=== PATIENT | female | born 1960 | race Caucasian/White ===

== ENCOUNTER 2023-09-02 15:03 | Emergency (ER) | payer MEDICARE, MEDICAID ==
[~2023-09-02] VITALS: Ht 180.3 cm; Wt 50.9 kg
[~2023-09-02 15:03] MED LIST: CLOZ25TA52 PO; DULO-113 PO; LEVO25TA9 PO; LITH300C3 PO; PANT-31 PO; SIMV-259 PO
[2023-09-02 15:25] VITALS: TEMP 98.5
[2023-09-02] MEDS ORDERED: ACETAMINOPHEN 325 MG TABLET PO ONE (15:45)
[2023-09-02] MEDS ORDERED: LAMO-24 PO (17:22)
[2023-09-02] MEDS ORDERED: OLAN2.5T29 PO (17:22)
[2023-09-02] MEDS ORDERED: PANT-31 PO (17:22)
[2023-09-02] MEDS ORDERED: OLAN10TA74 PO (17:22)
[2023-09-02 18:45] VITALS: BP 110/75; PULSE 90; RESP 12
== END 2023-09-02 19:12 | disposition home or self-care (01) ==
LOC: EMS 15:10
DX: S09.90XA Unspecified injury of head, initial encounter (principal); E03.9 Hypothyroidism, unspecified; F20.9 Schizophrenia, unspecified; M25.512 Pain in left shoulder; X58.XXXA Exposure to other specified factors, initial encounter; Y93.89 Activity, other specified; Y92.89 Other specified places as the place of occurrence of the external cause; Y99.8 Other external cause status
CPT/HCPCS: 70450; 72125; 99284

== ENCOUNTER 2024-01-15 16:40 | Inpatient (IN) | payer MEDICARE, MEDICAID ==
[~2024-01-15] VITALS: Ht 149.9 cm; Wt 43.5 kg
[~2024-01-15 16:40] MED LIST changes: +LAMO-24 PO; +OLAN10TA74 PO; +OLAN2.5T29 PO
[2024-01-15 18:48] LABS: COVID AG,FIA SOURCE NASAL SWAB
[2024-01-15 19:04] LABS: BASOPHILS % (AUTO) 0.5 % (0.0-2.0); EOSINOPHILS % (AUTO) 0.9 % (1.0-6.0); HEMATOCRIT 36.3 % (36-46); HEMOGLOBIN 12.2 g/dL (12.0-16.0); LYMPHOCYTES # (AUTO) 0.9 K/uL (1.0-4.8); LYMPHOCYTES % (AUTO) 11.7 % (22.0-44.0); MEAN CORPUSCULAR HEMOGLOBIN 31.1 pg (26.0-34.0); MEAN CORPUSCULAR HGB CONC 33.5 G/dL (31.0-37.0); MEAN CORPUSCULAR VOLUME 93 fL (80-100); MONOCYTES # (AUTO) 0.5 K/uL (0.1-1.0); MONOCYTES % (AUTO) 6.4 % (2.0-9.0); NEUTROPHILS # (AUTO) 6.4 K/uL (1.8-7.7); NEUTROPHILS % (AUTO) 80.5 % (40.0-70.0); PLATELET COUNT (AUTO) 286 K/uL (150-450); RED BLOOD CELL COUNT(AUTO) 3.91 MIL/uL (4.00-5.20); RED CELL DISTRIBUTION WIDTH 14.1 % (11.5-14.5)
[2024-01-15 19:08] LABS: SARS-COV2 (COVID) ANTIGEN,FIA Negative (Negative)
[2024-01-15 19:10] LABS: ANION GAP 8 mmol/L (8-16); CALCIUM, TOTAL 8.6 mg/dL (8.8-10.5); CARBON DIOXIDE 30 mmol/L (22-29); CHLORIDE 105 mmol/L (98-107); GLOMERULAR FILTR. RATE CALC 56 mL/min (>60); GLUCOSE,RANDOM 89 mg/dL (70-110); POTASSIUM 3.9 mmol/L (3.5-5.1); SODIUM SERUM 143 mmol/L (136-145); UREA NITROGEN, BLOOD 17 mg/dL (7-18)
[2024-01-15 19:16] LABS: ALANINE AMINOTRANSFERASE 34 U/L (12-78); ALBUMIN 3.2 g/dL (3.4-5.0); ALKALINE PHOSPHATASE 67 U/L (46-116); ASPARTATE AMINOTRANSFERASE 11 U/L (15-37); BILIRUBIN,TOTAL 0.4 mg/dL (0.1-1.0); TOTAL PROTEIN, SERUM 5.8 g/dL (6.4-8.2)
[2024-01-15 19:18] LABS: ALCOHOL, BLOOD (SERUM) < 3 mg/dL (0-10)
[2024-01-16 11:29] VITALS: BP 149/99; PULSE 90; RESP 18; TEMP 97.6; O2SAT 97
[2024-01-16] MEDS ORDERED: PNEUMOCOCCAL VACCINE POLYVALENT 0.5 ML SYRINGE [PPSV23] IM. ONE (12:00)
[2024-01-16] MEDS ORDERED: ACETAMINOPHEN 325 MG TABLET PO PRN (12:30)
[2024-01-16] MEDS ORDERED: ALBUTEROL SULFATE HFA 90 MCG/PUFF 8 GM INHALER IH PRN (12:30)
[2024-01-16] MEDS: LEVOTHYROXINE SODIUM 50 MCG TABLET PO SCH (12:30)
[2024-01-16] MEDS ORDERED: PETROLATUM,WHITE 28 GM JELLY TP PRN (12:30)
[2024-01-16] MEDS ORDERED: ONDANSETRON HCL 4 MG TABLET PO PRN (12:30)
[2024-01-16] MEDS ORDERED: DOCUSATE SODIUM 100 MG CAPSULE PO PRN (12:30)
[2024-01-16] MEDS ORDERED: CloNIDine HCL 0.1 MG TABLET PO PRN (12:30)
[2024-01-16] MEDS ORDERED: GuaiFENesin/D-METHORPHAN [SUGAR-FREE] 200-20MG/10 ML SYRUP UDCUP PO PRN (12:30)
[2024-01-16] MEDS ORDERED: LOPERAMIDE HCL 2 MG CAPSULE PO PRN (12:30)
[2024-01-16] MEDS ORDERED: IBUPROFEN 400 MG TABLET PO PRN (12:30)
[2024-01-16] MEDS: FOLIC ACID 1 MG TABLET PO SCH (12:59)
[2024-01-16] MEDS: CHOLECALCIFEROL (VIT D3) 1,000 UNITS [25 MCG] TABLET PO SCH (12:59)
[2024-01-16] MEDS: HALOPERIDOL 5 MG TABLET PO PRN (12:59)
[2024-01-16] MEDS: MULTIVITAMINS WITH MINERALS, THERAPEUTIC TABLET PO SCH (12:59)
[2024-01-16] MEDS: THIAMINE 100 MG TABLET PO SCH (12:59)
[2024-01-16] MEDS: MAGNESIUM OXIDE 400 MG TABLET PO SCH (12:59)
[2024-01-16] MEDS: MIDODRINE HCL 5 MG TABLET PO SCH (13:00)
[2024-01-16] MEDS: LORazepam 2 MG TABLET PO PRN (20:15)
[2024-01-16 21:05] VITALS: BP 101/68; PULSE 102; RESP 18; TEMP 97.3; O2SAT 96
[2024-01-16] MEDS: ZOLPIDEM TARTRATE 10 MG TABLET PO PRN (21:19)
[2024-01-17 08:05] VITALS: BP 128/74; PULSE 90; RESP 18; TEMP 97.6; O2SAT 95
[2024-01-17 08:56] LABS: HEMOGLOBIN A1C 5.7 % (3.8-5.6)
[2024-01-17 09:11] LABS: CHOL/HDL RATIO 3.5 (3.9-5.7); THYROID STIMULATING HORMONE 4.31 uIU/mL (0.36-3.74)
[2024-01-17] MEDS: LamoTRIgine 100 MG TABLET PO SCH (12:14)
[2024-01-17] MEDS: LITHIUM CARBONATE 300 MG CAPSULE PO SCH (16:43)
[2024-01-17] MEDS: OLANZapine 2.5 MG TABLET PO SCH (16:44)
[2024-01-17] MEDS: DULoxetine HCL 60 MG CAPSULE PO SCH (16:44)
[2024-01-17 20:05] VITALS: BP 105/66; PULSE 71; RESP 18; TEMP 97.1; O2SAT 96
[2024-01-17] MEDS: CloZAPine 100 MG TABLET PO SCH (20:59)
[2024-01-17] MEDS: OLANZapine 10 MG TABLET PO SCH (20:59)
[2024-01-18 09:22] VITALS: BP 136/74; PULSE 92; RESP 18; TEMP 97.8; O2SAT 97
[2024-01-18 21:30] VITALS: BP 131/75; PULSE 79; RESP 18; TEMP 97.5
[2024-01-19 10:03] VITALS: BP 94/61; PULSE 88; RESP 18; TEMP 97.5; O2SAT 96
[2024-01-19 16:30] VITALS: BP 112/79; PULSE 90; RESP 18
[2024-01-19 22:29] VITALS: BP 120/80; PULSE 82; RESP 19; TEMP 98; O2SAT 98
[2024-01-20 08:45] VITALS: BP 105/69; PULSE 81; RESP 16; TEMP 97.4; O2SAT 97
[2024-01-20 12:15] VITALS: BP 116/72; PULSE 78; RESP 18
[2024-01-20 17:15] VITALS: BP 118/74; PULSE 76; RESP 18
[2024-01-20 21:10] VITALS: BP 91/63; PULSE 77; RESP 18; TEMP 97; O2SAT 95
[2024-01-21 07:30] LABS: BASOPHILS % (AUTO) 0.2 % (0.0-2.0); EOSINOPHILS % (AUTO) 2.9 % (1.0-6.0); HEMATOCRIT 39.1 % (36-46); HEMOGLOBIN 13.4 g/dL (12.0-16.0); LYMPHOCYTES # (AUTO) 0.9 K/uL (1.0-4.8); LYMPHOCYTES % (AUTO) 9.4 % (22.0-44.0); MEAN CORPUSCULAR HEMOGLOBIN 31.8 pg (26.0-34.0); MEAN CORPUSCULAR HGB CONC 34.3 G/dL (31.0-37.0); MEAN CORPUSCULAR VOLUME 93 fL (80-100); MONOCYTES # (AUTO) 0.6 K/uL (0.1-1.0); MONOCYTES % (AUTO) 6.1 % (2.0-9.0); NEUTROPHILS # (AUTO) 7.9 K/uL (1.8-7.7); NEUTROPHILS % (AUTO) 81.4 % (40.0-70.0); PLATELET COUNT (AUTO) 251 K/uL (150-450); RED BLOOD CELL COUNT(AUTO) 4.21 MIL/uL (4.00-5.20); RED CELL DISTRIBUTION WIDTH 14.2 % (11.5-14.5); WHITE BLOOD COUNT (AUTO) 9.7 K/uL (4.5-11.0)
[2024-01-21 08:15] VITALS: BP 116/80; PULSE 81; RESP 18; TEMP 97.5; O2SAT 96
[2024-01-21 20:29] VITALS: BP 112/71; PULSE 80; RESP 18; TEMP 97.5
[2024-01-22 07:14] LABS: BASOPHILS % (AUTO) 0.2 % (0.0-2.0); EOSINOPHILS % (AUTO) 1.5 % (1.0-6.0); HEMATOCRIT 39.1 % (36-46); HEMOGLOBIN 13.1 g/dL (12.0-16.0); LYMPHOCYTES # (AUTO) 0.8 K/uL (1.0-4.8); LYMPHOCYTES % (AUTO) 6.1 % (22.0-44.0); MEAN CORPUSCULAR HEMOGLOBIN 31.1 pg (26.0-34.0); MEAN CORPUSCULAR HGB CONC 33.4 G/dL (31.0-37.0); MEAN CORPUSCULAR VOLUME 93 fL (80-100); MONOCYTES # (AUTO) 0.8 K/uL (0.1-1.0); NEUTROPHILS # (AUTO) 11.2 K/uL (1.8-7.7); PLATELET COUNT (AUTO) 290 K/uL (150-450); RED CELL DISTRIBUTION WIDTH 13.7 % (11.5-14.5)
[2024-01-22 07:25] LABS: NEUTROPHILS % (AUTO) 86.2 % (40.0-70.0)
[2024-01-22 08:41] VITALS: BP 102/67; PULSE 90; RESP 17; TEMP 98.3; O2SAT 95
[2024-01-22 21:36] VITALS: BP 90/60; PULSE 80; RESP 18; TEMP 98.3; O2SAT 95
[2024-01-23 08:40] VITALS: BP 98/61; PULSE 85; RESP 16; TEMP 97.6; O2SAT 95
[2024-01-23 21:40] VITALS: BP 127/80; PULSE 79; RESP 18; TEMP 97.3; O2SAT 96
[2024-01-24 08:45] VITALS: BP 120/80; PULSE 75; RESP 17; TEMP 97.4; O2SAT 95
[2024-01-24] MEDS: BENZTROPINE MESYLATE 1 MG TABLET PO SCH (16:30)
[2024-01-24 20:00] VITALS: BP 105/70; PULSE 70; RESP 18; TEMP 97.2; O2SAT 96
[2024-01-25 08:45] LABS: BASOPHILS % (AUTO) 0.2 % (0.0-2.0); EOSINOPHILS % (AUTO) 2.5 % (1.0-6.0); HEMATOCRIT 36.7 % (36-46); HEMOGLOBIN 12.1 g/dL (12.0-16.0); LYMPHOCYTES # (AUTO) 1.1 K/uL (1.0-4.8); LYMPHOCYTES % (AUTO) 9.7 % (22.0-44.0); MEAN CORPUSCULAR HEMOGLOBIN 31.3 pg (26.0-34.0); MEAN CORPUSCULAR VOLUME 95 fL (80-100); MONOCYTES # (AUTO) 0.9 K/uL (0.1-1.0); MONOCYTES % (AUTO) 7.4 % (2.0-9.0); NEUTROPHILS # (AUTO) 9.4 K/uL (1.8-7.7); NEUTROPHILS % (AUTO) 80.2 % (40.0-70.0); PLATELET COUNT (AUTO) 254 K/uL (150-450); RED BLOOD CELL COUNT(AUTO) 3.87 MIL/uL (4.00-5.20); RED CELL DISTRIBUTION WIDTH 14.1 % (11.5-14.5); WHITE BLOOD COUNT (AUTO) 11.7 K/uL (4.5-11.0)
[2024-01-25 09:01] VITALS: BP 123/81; PULSE 85; RESP 16; TEMP 97.1; O2SAT 96
[2024-01-25 21:18] VITALS: RESP 18
[2024-01-26 08:17] VITALS: BP 110/76; PULSE 88; RESP 18; TEMP 97.7; O2SAT 96
[2024-01-26 20:03] VITALS: BP 112/78; PULSE 86; RESP 18; TEMP 97.4
[2024-01-27 08:00] VITALS: BP 88/59; PULSE 96; RESP 18; TEMP 98.4; O2SAT 95
[2024-01-27 11:30] VITALS: BP 118/72; PULSE 99; RESP 18; TEMP 97.9; O2SAT 96
[2024-01-27] MEDS: MAGNESIUM HYDROXIDE SUSPENSION 30 ML UDCUP PO PRN (17:58)
[2024-01-28] MEDS: DOCUSATE SODIUM 100 MG CAPSULE PO SCH (10:05)
[2024-01-28 10:44] LABS: BASOPHILS % (AUTO) 0.5 % (0.0-2.0); EOSINOPHILS % (AUTO) 4.2 % (1.0-6.0); HEMATOCRIT 36.1 % (36-46); HEMOGLOBIN 12.2 g/dL (12.0-16.0); LYMPHOCYTES # (AUTO) 0.9 K/uL (1.0-4.8); LYMPHOCYTES % (AUTO) 9.8 % (22.0-44.0); MEAN CORPUSCULAR HEMOGLOBIN 31.4 pg (26.0-34.0); MEAN CORPUSCULAR HGB CONC 33.7 G/dL (31.0-37.0); MEAN CORPUSCULAR VOLUME 93 fL (80-100); MONOCYTES # (AUTO) 0.5 K/uL (0.1-1.0); MONOCYTES % (AUTO) 5.8 % (2.0-9.0); NEUTROPHILS # (AUTO) 7.1 K/uL (1.8-7.7); NEUTROPHILS % (AUTO) 79.7 % (40.0-70.0); PLATELET COUNT (AUTO) 271 K/uL (150-450); RED BLOOD CELL COUNT(AUTO) 3.87 MIL/uL (4.00-5.20); RED CELL DISTRIBUTION WIDTH 13.8 % (11.5-14.5); WHITE BLOOD COUNT (AUTO) 8.9 K/uL (4.5-11.0)
[2024-01-28 21:33] VITALS: BP 100/64; PULSE 83; RESP 18; TEMP 98.1; O2SAT 96
[2024-01-28] MEDS: MAG HYDROX/ALUMINUM HYD/SIMETH ES 30 ML SUSPENSION UDCUP PO PRN (21:39)
[2024-01-29 10:47] VITALS: BP 116/72; PULSE 81; RESP 18; TEMP 97.1; O2SAT 97
[2024-01-29 20:21] VITALS: BP 102/67; PULSE 68; RESP 18; TEMP 97.8; O2SAT 96
[2024-01-30 08:32] VITALS: BP 120/74; PULSE 96; RESP 16; TEMP 97.7; O2SAT 95
== END 2024-01-30 16:15 | DRG 885 ==
LOC: EMS 16:41 → 3EC 01-16 08:42
PROVIDERS: ADMIT Psychiatry & Neurology Child & Adolescent Psychiatry; ATTEND Psychiatry & Neurology Child & Adolescent Psychiatry
PROC: GZHZZZZ Group Psychotherapy (ICD-10-PCS; principal; 2024-01-19)
PROC: GZ52ZZZ Individual Psychotherapy, Cognitive (ICD-10-PCS; 2024-01-19)
DX: F20.0 Paranoid schizophrenia (principal); E43 Unspecified severe protein-calorie malnutrition; R45.851 Suicidal ideations; Z68.1 Body mass index [BMI] 19.9 or less, adult; Z59.00 Homelessness unspecified; E03.9 Hypothyroidism, unspecified; K21.9 Gastro-esophageal reflux disease without esophagitis; E78.5 Hyperlipidemia, unspecified; D72.829 Elevated white blood cell count, unspecified; Z20.822 Contact with and (suspected) exposure to COVID-19; Z79.899 Other long term (current) drug therapy; Z91.81 History of falling
CPT/HCPCS: 80053; 80061; 80178; 83036; 84443; 85025; 87081; 99285; G0480

== ENCOUNTER 2024-08-04 20:47 | Emergency (ER) | payer MEDICARE, OTHER ==
[~2024-08-04] VITALS: Ht 160 cm; Wt 54.5 kg
[~2024-08-04 20:47] MED LIST changes: -OLAN2.5T29 PO; +OLAN2.5T78 PO; -PANT-31 PO; -SIMV-259 PO
[2024-08-04 23:20] VITALS: TEMP 97.8
[2024-08-04 23:41] LABS: BASOPHILS % (AUTO) 0.5 % (0.0-2.0); EOSINOPHILS % (AUTO) 3.5 % (1.0-6.0); HEMATOCRIT 38.9 % (36-46); HEMOGLOBIN 12.6 g/dL (12.0-16.0); LYMPHOCYTES # (AUTO) 1.3 K/uL (1.0-4.8); MEAN CORPUSCULAR HEMOGLOBIN 30.9 pg (26.0-34.0); MEAN CORPUSCULAR HGB CONC 32.3 G/dL (31.0-37.0); MEAN CORPUSCULAR VOLUME 96 fL (80-100); MONOCYTES # (AUTO) 0.9 K/uL (0.1-1.0); MONOCYTES % (AUTO) 9.2 % (2.0-9.0); NEUTROPHILS # (AUTO) 6.8 K/uL (1.8-7.7); NEUTROPHILS % (AUTO) 72.8 % (40.0-70.0); PLATELET COUNT (AUTO) 318 K/uL (150-450); RED BLOOD CELL COUNT(AUTO) 4.07 MIL/uL (4.00-5.20); RED CELL DISTRIBUTION WIDTH 14.9 % (11.5-14.5); WHITE BLOOD COUNT (AUTO) 9.4 K/uL (4.5-11.0)
[2024-08-04 23:58] LABS: ANION GAP 8 mmol/L (8-16); CALCIUM, TOTAL 8.9 mg/dL (8.8-10.5); CARBON DIOXIDE 26 mmol/L (22-29); CHLORIDE 105 mmol/L (98-107); CREATININE 0.82 mg/dL (0.60-1.30); GLOMERULAR FILTR. RATE CALC > 60 mL/min (>60); GLUCOSE,RANDOM 97 mg/dL (70-110); POTASSIUM 4.3 mmol/L (3.5-5.1); SODIUM SERUM 139 mmol/L (136-145); UREA NITROGEN, BLOOD 18 mg/dL (7-18)
[2024-08-05 00:08] LABS: ALCOHOL, BLOOD (SERUM) < 3 mg/dL (0-10)
[2024-08-05 00:44] LABS: ALCOHOL, URINE DRUG SCREEN NEGATIVE (NEGATIVE); AMPHET/METH SCREEN,URINE NEGATIVE (NEGATIVE); BARBITURATE SCREEN, URINE NEGATIVE (NEGATIVE); BENZODIAZEPINES SCREEN,URINE NEGATIVE (NEGATIVE); CANNABINOID SCREEN,URINE NEGATIVE (NEGATIVE); COCAINE SCREEN,URINE NEGATIVE (NEGATIVE); METHADONE SCREEN, URINE NEGATIVE (NEGATIVE); OPIATE SCREEN,URINE NEGATIVE (NEGATIVE); PHENCYCLIDINE SCREEN,URINE NEGATIVE (NEGATIVE)
[2024-08-05 06:53] VITALS: BP 101/69; PULSE 58; RESP 16; O2SAT 99
== END 2024-08-05 07:05 | disposition home or self-care (01) ==
LOC: EMS 20:47
DX: F25.9 Schizoaffective disorder, unspecified (principal); R53.1 Weakness; F32.A Depression, unspecified; E78.5 Hyperlipidemia, unspecified; E03.9 Hypothyroidism, unspecified; K21.9 Gastro-esophageal reflux disease without esophagitis; Z79.899 Other long term (current) drug therapy
CPT/HCPCS: 99284; 80048; 85025; 36415; 80307; G0480

== ENCOUNTER 2024-08-16 23:58 | Emergency (ER) | payer MEDICARE, MEDICAID ==
[~2024-08-16] VITALS: Ht 157.5 cm; Wt 59.1 kg
[~2024-08-16 23:58] MED LIST changes: +CHOL25TA4 PO; +HYDR-4808 PO; +VORT5TAB PO
[2024-08-17 00:16] VITALS: TEMP 97.6
[2024-08-17 04:07] LABS: BASOPHILS % (AUTO) 0.6 % (0.0-2.0); HEMOGLOBIN 11.2 g/dL (12.0-16.0); LYMPHOCYTES # (AUTO) 1.1 K/uL (1.0-4.8); LYMPHOCYTES % (AUTO) 13.4 % (22.0-44.0); MEAN CORPUSCULAR HEMOGLOBIN 32.2 pg (26.0-34.0); MEAN CORPUSCULAR VOLUME 95 fL (80-100); MONOCYTES # (AUTO) 0.6 K/uL (0.1-1.0); MONOCYTES % (AUTO) 7.9 % (2.0-9.0); NEUTROPHILS % (AUTO) 75.1 % (40.0-70.0); PLATELET COUNT (AUTO) 304 K/uL (150-450); RED BLOOD CELL COUNT(AUTO) 3.48 MIL/uL (4.00-5.20); RED CELL DISTRIBUTION WIDTH 13.4 % (11.5-14.5)
[2024-08-17 04:17] LABS: CREATININE 1.03 mg/dL (0.60-1.30); POTASSIUM 3.9 mmol/L (3.5-5.1)
[2024-08-17 04:24] LABS: CALCIUM, TOTAL 8.3 mg/dL (8.8-10.5)
[2024-08-17 06:02] VITALS: BP 103/68; PULSE 66; RESP 14; O2SAT 97
== END 2024-08-17 06:30 ==
LOC: EMS 23:59
DX: S09.90XA Unspecified injury of head, initial encounter (principal); R41.82 Altered mental status, unspecified; F20.0 Paranoid schizophrenia; E78.5 Hyperlipidemia, unspecified; K21.9 Gastro-esophageal reflux disease without esophagitis; E03.9 Hypothyroidism, unspecified; F32.A Depression, unspecified; Z88.6 Allergy status to analgesic agent; Z79.899 Other long term (current) drug therapy; X58.XXXA Exposure to other specified factors, initial encounter; Y93.89 Activity, other specified; Y92.89 Other specified places as the place of occurrence of the external cause; Y99.8 Other external cause status
CPT/HCPCS: 70450; 80048; 82962; 85025; 99284

== ENCOUNTER → 2024-09-01 | Emergency (ER) | payer MEDICARE, OTHER ==
[~2024-09-01] VITALS: Ht 151.8 cm; Wt 45.5 kg
[~2024-09-01] MED LIST changes: +BENZ-247 PO; +CLOZ100T61 PO; +FOLI-130 PO; +LEVO50 PO; +LEVO750T68 PO; +LEVOFLOXACIN 250 MG TABLET PO SCH; +MIDO5TAB5 PO; +OLAN20TA82 PO; +VORT20TA PO
[2024-09-01 17:47] VITALS: TEMP 98.4
[2024-09-01 18:06] LABS: BASOPHILS % (AUTO) 0.4 % (0.0-2.0); EOSINOPHILS % (AUTO) 0.8 % (1.0-6.0); HEMATOCRIT 36.1 % (36-46); HEMOGLOBIN 11.6 g/dL (12.0-16.0); LYMPHOCYTES # (AUTO) 0.9 K/uL (1.0-4.8); LYMPHOCYTES % (AUTO) 6.4 % (22.0-44.0); MEAN CORPUSCULAR HEMOGLOBIN 30.6 pg (26.0-34.0); MEAN CORPUSCULAR HGB CONC 32.2 G/dL (31.0-37.0); MEAN CORPUSCULAR VOLUME 95 fL (80-100); MONOCYTES # (AUTO) 0.7 K/uL (0.1-1.0); NEUTROPHILS # (AUTO) 12.7 K/uL (1.8-7.7); PLATELET COUNT (AUTO) 372 K/uL (150-450); RED CELL DISTRIBUTION WIDTH 13.1 % (11.5-14.5); WHITE BLOOD COUNT (AUTO) 14.5 K/uL (4.5-11.0)
[2024-09-01 18:09] LABS: NEUTROPHILS % (AUTO) 87.4 % (40.0-70.0)
[2024-09-01] MEDS: LORazepam 2 MG/ML VIAL IVP ONE (18:12)
[2024-09-01 18:17] LABS: CALCIUM, TOTAL 8.8 mg/dL (8.8-10.5); CREATININE 1.12 mg/dL (0.60-1.30); POTASSIUM 4.2 mmol/L (3.5-5.1)
[2024-09-01 18:23] LABS: ALBUMIN 3.3 g/dL (3.4-5.0); BILIRUBIN,TOTAL 0.2 mg/dL (0.1-1.0); TOTAL PROTEIN, SERUM 5.9 g/dL (6.4-8.2)
[2024-09-01 18:25] LABS: TROPONIN I-HIGH SENSITIVITY 4 ng/L (<51)
[2024-09-01 19:10] VITALS: BP 109/71; PULSE 84; RESP 18; O2SAT 95
[2024-09-01 21:59] LABS: APPEARANCE,URINE CLEAR (CLEAR); BILIRUBIN,URINE NEGATIVE (NEGATIVE); COLOR,URINE YELLOW (YELLOW); GLUCOSE, URINE (UA) NEGATIVE (NEGATIVE); KETONES,URINE NEGATIVE (NEGATIVE); LEUKOCYTE ESTERASE ,URINE TRACE (NEGATIVE); NITRATE,URINE NEGATIVE (NEGATIVE); OCCULT BLOOD,URINE NEGATIVE (NEGATIVE); PH,URINE 7.5 (5.0-8.0); PROTEIN,URINE TRACE mg/dL (NEGATIVE); SPECIFIC GRAVITIY, URINE 1.023 (1.003-1.030); UROBILINOGEN,URINE <=1.0 mg/dL (<=1.0)
[2024-09-01 22:48] LABS: BACTERIA,URINE Rare /HPF (None Seen); RBC,URINE None Seen /HPF (0-2); WBC,URINE 0-2 /HPF (0-5)
[2024-09-01 23:00] LABS: COVID AG,FIA SOURCE NASAL SWAB
[2024-09-01 23:29] LABS: SARS-COV2 (COVID) ANTIGEN,FIA Negative (Negative)
== END | disposition home or self-care (01) ==
LOC: EMS 16:30
DX: R07.89 Other chest pain (principal); K21.9 Gastro-esophageal reflux disease without esophagitis; E03.9 Hypothyroidism, unspecified; E78.5 Hyperlipidemia, unspecified; F20.9 Schizophrenia, unspecified; F31.9 Bipolar disorder, unspecified; F41.9 Anxiety disorder, unspecified; Z79.899 Other long term (current) drug therapy; Z20.822 Contact with and (suspected) exposure to COVID-19; W19.XXXA Unspecified fall, initial encounter; Y93.89 Activity, other specified; Y92.89 Other specified places as the place of occurrence of the external cause; Y99.8 Other external cause status
CPT/HCPCS: 99285; 96374; 71045; 87426; 80053; 81001; 83880; 84484; 85025; 36415; 93005; J2060

== ENCOUNTER 2024-12-01 11:41 | Inpatient (IN) | payer MEDICARE, MEDICAID ==
[~2024-12-01] VITALS: Ht 149.9 cm; Wt 45.8 kg
[~2024-12-01 11:41] MED LIST changes: +ACET-2247 PO; +AMOX-457 PO; -CLOZ25TA52 PO; +DOCU-385 PO; -FOLI-130 PO; -LEVO25TA9 PO; -LEVOFLOXACIN 250 MG TABLET PO SCH; +MAGN-169 PO; -MIDO5TAB5 PO; -OLAN20TA82 PO; -VORT20TA PO; -VORT5TAB PO
[2024-12-01 12:50] LABS: BASOPHILS % (AUTO) 0.7 % (0.0-2.0); EOSINOPHILS % (AUTO) 2.1 % (1.0-6.0); HEMATOCRIT 36.4 % (36-46); HEMOGLOBIN 11.9 g/dL (12.0-16.0); LYMPHOCYTES % (AUTO) 12.8 % (22.0-44.0); MEAN CORPUSCULAR HEMOGLOBIN 29.9 pg (26.0-34.0); MEAN CORPUSCULAR HGB CONC 32.7 G/dL (31.0-37.0); MEAN CORPUSCULAR VOLUME 91 fL (80-100); MONOCYTES # (AUTO) 0.5 K/uL (0.1-1.0); MONOCYTES % (AUTO) 6.8 % (2.0-9.0); NEUTROPHILS # (AUTO) 6.2 K/uL (1.8-7.7); NEUTROPHILS % (AUTO) 77.6 % (40.0-70.0); PLATELET COUNT (AUTO) 351 K/uL (150-450); RED BLOOD CELL COUNT(AUTO) 3.98 MIL/uL (4.00-5.20); RED CELL DISTRIBUTION WIDTH 15.8 % (11.5-14.5)
[2024-12-01 12:59] LABS: ANION GAP 9 mmol/L (8-16); CALCIUM, TOTAL 8.3 mg/dL (8.8-10.5); CARBON DIOXIDE 24 mmol/L (22-29); CHLORIDE 106 mmol/L (98-107); CREATININE 1.31 mg/dL (0.60-1.30); GLOMERULAR FILTR. RATE CALC 41 mL/min (>60); GLUCOSE,RANDOM 84 mg/dL (70-110); POTASSIUM 3.9 mmol/L (3.5-5.1); SODIUM SERUM 139 mmol/L (136-145); UREA NITROGEN, BLOOD 22 mg/dL (7-18)
[2024-12-01 13:14] LABS: COVID AG,FIA SOURCE NASAL SWAB
[2024-12-01 13:26] LABS: ALCOHOL, BLOOD (SERUM) < 3 mg/dL (0-10)
[2024-12-01 13:57] LABS: SARS-COV2 (COVID) ANTIGEN,FIA Negative (Negative)
[2024-12-01] MEDS: DiphenhydrAMINE HCL 25 MG CAPSULE PO ONE (17:50)
[2024-12-01] MEDS: HALOPERIDOL 5 MG TABLET PO ONE (17:50)
[2024-12-01] MEDS: LORazepam 2 MG TABLET PO ONE (17:51)
[2024-12-01 19:07] LABS: APPEARANCE,URINE CLEAR (CLEAR); BILIRUBIN,URINE NEGATIVE (NEGATIVE); COLOR,URINE YELLOW (YELLOW); GLUCOSE, URINE (UA) NEGATIVE (NEGATIVE); KETONES,URINE TRACE mg/dL (NEGATIVE); LEUKOCYTE ESTERASE ,URINE MODERATE (NEGATIVE); NITRATE,URINE NEGATIVE (NEGATIVE); OCCULT BLOOD,URINE NEGATIVE (NEGATIVE); PH,URINE 6.5 (5.0-8.0); PH,URINE DRUG SCREEN 6.5 (5.0-8.0); PROTEIN,URINE NEGATIVE (NEGATIVE); SPECIFIC GRAVITIY, URINE 1.026 (1.003-1.030); UROBILINOGEN,URINE <=1.0 mg/dL (<=1.0)
[2024-12-01 19:13] LABS: ALCOHOL, URINE DRUG SCREEN NEGATIVE (NEGATIVE); AMPHET/METH SCREEN,URINE NEGATIVE (NEGATIVE); BARBITURATE SCREEN, URINE NEGATIVE (NEGATIVE); BENZODIAZEPINES SCREEN,URINE NEGATIVE (NEGATIVE); CANNABINOID SCREEN,URINE NEGATIVE (NEGATIVE); COCAINE SCREEN,URINE NEGATIVE (NEGATIVE); METHADONE SCREEN, URINE NEGATIVE (NEGATIVE); OPIATE SCREEN,URINE NEGATIVE (NEGATIVE); PHENCYCLIDINE SCREEN,URINE NEGATIVE (NEGATIVE)
[2024-12-01 19:53] LABS: BACTERIA,URINE Few /HPF (None Seen); RBC,URINE 0-2 /HPF (0-2); SQUAMOUS EPITHELIAL CELL,UR Few /LPF (None Seen)
[2024-12-01] MEDS: CloZAPine 100 MG TABLET PO ONE (20:27)
[2024-12-02] MEDS ORDERED: ZOLPIDEM TARTRATE 10 MG TABLET PO PRN (12:30)
[2024-12-02 14:50] VITALS: BP 111/74; PULSE 77; RESP 17; TEMP 98; O2SAT 98
[2024-12-02] MEDS: HALOPERIDOL 5 MG TABLET PO PRN (17:34)
[2024-12-02] MEDS ORDERED: PETROLATUM,WHITE 28 GM JELLY TP PRN (18:45)
[2024-12-02] MEDS ORDERED: NICOTINE 14 MG/24 HOUR PATCH TD PRN (18:45)
[2024-12-02] MEDS ORDERED: MAGNESIUM HYDROXIDE SUSPENSION 30 ML UDCUP PO PRN (18:45)
[2024-12-02] MEDS ORDERED: ACETAMINOPHEN 325 MG TABLET PO PRN (18:45)
[2024-12-02] MEDS ORDERED: GuaiFENesin/D-METHORPHAN [SUGAR-FREE] 200-20MG/10 ML SYRUP UDCUP PO PRN (18:45)
[2024-12-02] MEDS ORDERED: IBUPROFEN 400 MG TABLET PO PRN (18:45)
[2024-12-02] MEDS ORDERED: MAG HYDROX/ALUMINUM HYD/SIMETH ES 30 ML SUSPENSION UDCUP PO PRN (18:45)
[2024-12-02] MEDS ORDERED: LOPERAMIDE HCL 2 MG CAPSULE PO PRN (18:45)
[2024-12-02] MEDS ORDERED: ALBUTEROL SULFATE HFA 90 MCG/PUFF 8 GM INHALER IH PRN (18:45)
[2024-12-02] MEDS ORDERED: ONDANSETRON 4 MG TABLET PO PRN (18:45)
[2024-12-02] MEDS ORDERED: CloNIDine HCL 0.1 MG TABLET PO PRN (18:45)
[2024-12-02] MEDS ORDERED: DOCUSATE SODIUM 100 MG CAPSULE PO PRN (18:45)
[2024-12-02 20:04] VITALS: BP 113/72; PULSE 72; RESP 18; TEMP 97; O2SAT 97
[2024-12-03 03:22] LABS: APPEARANCE,URINE CLEAR (CLEAR); BILIRUBIN,URINE NEGATIVE (NEGATIVE); COLOR,URINE LIGHT YELLOW (YELLOW); GLUCOSE, URINE (UA) NEGATIVE (NEGATIVE); KETONES,URINE NEGATIVE (NEGATIVE); LEUKOCYTE ESTERASE ,URINE MODERATE (NEGATIVE); NITRATE,URINE NEGATIVE (NEGATIVE); OCCULT BLOOD,URINE NEGATIVE (NEGATIVE); PH,URINE 6.5 (5.0-8.0); PH,URINE DRUG SCREEN 6.5 (5.0-8.0); PROTEIN,URINE NEGATIVE (NEGATIVE); UROBILINOGEN,URINE <=1.0 mg/dL (<=1.0)
[2024-12-03 03:31] LABS: ALCOHOL, URINE DRUG SCREEN NEGATIVE (NEGATIVE); AMPHET/METH SCREEN,URINE NEGATIVE (NEGATIVE); BARBITURATE SCREEN, URINE NEGATIVE (NEGATIVE); BENZODIAZEPINES SCREEN,URINE NEGATIVE (NEGATIVE); CANNABINOID SCREEN,URINE NEGATIVE (NEGATIVE); COCAINE SCREEN,URINE NEGATIVE (NEGATIVE); METHADONE SCREEN, URINE NEGATIVE (NEGATIVE); OPIATE SCREEN,URINE NEGATIVE (NEGATIVE); PHENCYCLIDINE SCREEN,URINE NEGATIVE (NEGATIVE)
[2024-12-03 03:43] LABS: RBC,URINE None Seen /HPF (0-2)
[2024-12-03 03:44] LABS: BACTERIA,URINE None Seen /HPF (None Seen); SQUAMOUS EPITHELIAL CELL,UR Few /LPF (None Seen)
[2024-12-03] MEDS: LEVOTHYROXINE SODIUM 50 MCG TABLET PO SCH (06:58)
[2024-12-03 08:13] LABS: HEMOGLOBIN A1C 5.2 % (3.8-5.6)
[2024-12-03 08:22] LABS: CHOL/HDL RATIO 3.9 (3.9-5.7); THYROID STIMULATING HORMONE 8.42 uIU/mL (0.36-3.74)
[2024-12-03 09:52] VITALS: BP 91/58; PULSE 72; RESP 18; TEMP 97.5; O2SAT 95
[2024-12-03] MEDS: LamoTRIgine 100 MG TABLET PO SCH (15:50)
[2024-12-03] MEDS: OLANZapine 2.5 MG TABLET PO SCH (15:51)
[2024-12-03] MEDS: BENZTROPINE MESYLATE 1 MG TABLET PO SCH (15:51)
[2024-12-03] MEDS: DULoxetine HCL 60 MG CAPSULE PO SCH (15:51)
[2024-12-03] MEDS: LITHIUM CARBONATE 300 MG CAPSULE PO SCH (15:52)
[2024-12-03] MEDS: LORazepam 2 MG TABLET PO PRN (17:55)
[2024-12-03] MEDS: OLANZapine 10 MG TABLET PO SCH (21:17)
[2024-12-03] MEDS: CloZAPine 100 MG TABLET PO SCH (21:17)
[2024-12-03 21:52] VITALS: RESP 18
[2024-12-04 10:21] VITALS: BP 130/60; PULSE 84; RESP 17; TEMP 98
[2024-12-04 21:09] VITALS: BP 96/55; PULSE 61; RESP 16; TEMP 97.5; O2SAT 95
[2024-12-05 12:18] VITALS: BP 102/62; PULSE 78; RESP 16; TEMP 97.6; O2SAT 96
[2024-12-05 20:48] VITALS: BP 124/63; PULSE 76; RESP 18; TEMP 97.1; O2SAT 96
[2024-12-06 10:31] VITALS: RESP 18
[2024-12-06 22:58] VITALS: BP 99/62; PULSE 63; RESP 18; TEMP 97.4; O2SAT 96
[2024-12-07 08:23] VITALS: BP 114/64; PULSE 70; RESP 16; TEMP 97.6; O2SAT 96
[2024-12-07 22:20] VITALS: BP 105/59; PULSE 65; RESP 18; TEMP 97.6; O2SAT 98
[2024-12-08 10:33] VITALS: BP 104/69; PULSE 78; RESP 18; O2SAT 98
[2024-12-08 22:49] VITALS: BP 101/70; PULSE 67; RESP 18; TEMP 97.9; O2SAT 98
[2024-12-09 09:01] VITALS: BP 114/73; PULSE 77; RESP 18; TEMP 97.2; O2SAT 99
[2024-12-09 09:02] LABS: BASOPHILS % (AUTO) 0.3 % (0.0-2.0); EOSINOPHILS % (AUTO) 3.2 % (1.0-6.0); HEMATOCRIT 42.5 % (36-46); HEMOGLOBIN 13.9 g/dL (12.0-16.0); LYMPHOCYTES # (AUTO) 0.8 K/uL (1.0-4.8); LYMPHOCYTES % (AUTO) 10.8 % (22.0-44.0); MEAN CORPUSCULAR HGB CONC 32.8 G/dL (31.0-37.0); MEAN CORPUSCULAR VOLUME 92 fL (80-100); MONOCYTES # (AUTO) 0.6 K/uL (0.1-1.0); MONOCYTES % (AUTO) 7.7 % (2.0-9.0); NEUTROPHILS # (AUTO) 5.8 K/uL (1.8-7.7); PLATELET COUNT (AUTO) 341 K/uL (150-450); RED BLOOD CELL COUNT(AUTO) 4.65 MIL/uL (4.00-5.20); RED CELL DISTRIBUTION WIDTH 15.4 % (11.5-14.5); WHITE BLOOD COUNT (AUTO) 7.4 K/uL (4.5-11.0)
[2024-12-09 20:23] VITALS: BP 92/60; PULSE 68; RESP 18; TEMP 97.6
[2024-12-09 21:37] VITALS: BP 96/64; PULSE 64; RESP 16
[2024-12-10 09:00] VITALS: BP 105/64; PULSE 90; RESP 17; TEMP 98; O2SAT 98
== END 2024-12-10 20:05 | DRG 885 ==
LOC: EMS 11:58 → 3EX 12-02 14:47
PROVIDERS: ADMIT Psychiatry & Neurology Child & Adolescent Psychiatry; ATTEND Psychiatry & Neurology Child & Adolescent Psychiatry
PROC: GZHZZZZ Group Psychotherapy (ICD-10-PCS; principal; 2024-12-03)
PROC: GZ56ZZZ Individual Psychotherapy, Supportive (ICD-10-PCS; 2024-12-03)
PROC: GZ52ZZZ Individual Psychotherapy, Cognitive (ICD-10-PCS; 2024-12-03)
DX: F25.0 Schizoaffective disorder, bipolar type (principal); E43 Unspecified severe protein-calorie malnutrition; N17.9 Acute kidney failure, unspecified; F41.9 Anxiety disorder, unspecified; I10 Essential (primary) hypertension; Z20.822 Contact with and (suspected) exposure to COVID-19; E78.5 Hyperlipidemia, unspecified; I25.10 Atherosclerotic heart disease of native coronary artery without angina pectoris; E03.9 Hypothyroidism, unspecified; E55.9 Vitamin D deficiency, unspecified; Z68.20 Body mass index [BMI] 20.0-20.9, adult; K21.9 Gastro-esophageal reflux disease without esophagitis
CPT/HCPCS: 80048; 80061; 80178; 80307; 81001; 83036; 84443; 85025; 87081; 87086; 99291; G0378; G0480